=== PATIENT | male | born 1955 | race Caucasian/White ===

== ENCOUNTER 2017-04-27 09:12 | Day surgery (SDC) | payer OTHER ==
[~2017-04-27] VITALS: Ht 185.4 cm; Wt 97.5 kg
[~2017-04-27 09:12] MED LIST: 0.9% Sodium Chloride 1,000 ML IV PRN; FLUT15.88 NS; LISI-567 PO; LORA10CA PO; MELO-253 PO; OMEP20TA86 PO; SIMV20TA4 PO; Sodium Chloride LOK Flush 10 mL Syringe IV PRN; TADA20TA PO; fentaNYL-PF 50 mCg/mL 2 mL Inj IVPUSH PRN
[2017-04-27 09:25] VITALS: BP 142/83; PULSE 71; RESP 16; O2SAT 95
[2017-04-27 10:07] VITALS: BP 115/66; PULSE 62; RESP 15; O2SAT 97
[2017-04-27 10:17] VITALS: BP 101/66; PULSE 60; RESP 15; O2SAT 98
[2017-04-27 10:26] VITALS: BP 110/64; PULSE 59; RESP 15; O2SAT 97
--- NOTE | 2017-04-27 18:53 | ENDO ---
[address] [address] ENDOSCOPY PROCEDURE PATIENT: OMAR MOSELEY : 1955 MR#: [id number] ADMIT: 04/27/2017 JOB ID: [id number] DATE: 04/27/2017 PROCEDURE: Colonoscopy. INDICATIONS: Screening. Patient's ASA classification is II. Mallampati score is II. MEDICATIONS: Versed 5 mg, fentanyl 100 mcg. INSTRUMENT USED: [id number]. PREPARATION QUALITY: Fair. PROCEDURE DETAILS: After informed consent was obtained, the patient was brought into the GI suite, where he was placed on oxygen via nasal cannula and monitored with continuous pulse oximeter, telemetry, and blood pressure monitoring. A time-out was performed. Then, he was placed in a left lateral decubitus position and medications were administered for sedation. Digital rectal exam was performed, which was unremarkable. Colonoscope was then inserted into the rectum and advanced under direct visualization to the cecum, which was identified by the presence of the ileocecal valve and appendiceal orifice. Once the cecum was reached, the colonoscope was withdrawn back into the rectum as the mucosa and lumen were examined. In the rectum, retroflexion was performed. Following retroflexion, remaining air in the rectum was suctioned, and procedure was completed. FINDINGS: 1. Scattered diverticula were seen throughout the left side of the colon. 2. Otherwise unremarkable exam. IMPRESSION: Left-sided diverticulosis. RECOMMENDATIONS: 1. Fiber rich diet. 2. Repeat colonoscopy in 10 years, sooner if symptoms dictate. COMPLICATIONS: None. ESTIMATED BLOOD LOSS: Zero.
== END 2017-04-27 23:59 | disposition home or self-care (01) ==
LOC: END 09:12
PROVIDERS: ATTEND Internal Medicine Gastroenterology
DX: Z12.11 Encounter for screening for malignant neoplasm of colon (principal); K57.30 Diverticulosis of large intestine without perforation or abscess without bleeding; Z86.010 Personal history of colon polyps; I10 Essential (primary) hypertension; E78.5 Hyperlipidemia, unspecified; R73.03 Prediabetes
CPT/HCPCS: 99153; G0105; G0500; J2250; J3010; J7030